=== PATIENT | male | born 1980 | race Caucasian/White ===

== ENCOUNTER 2022-01-18 17:05 | Emergency (ER) | payer OTHER ==
[2022-01-18 17:34] VITALS: BP 113/66; PULSE 111; TEMP 97.9; BMI 23.4
[2022-01-18] MEDS ORDERED: KETOROLAC TROMETHAMINE 60 MG/2 ML VIAL IM ONE (18:39)
[2022-01-18] MEDS ORDERED: SODIUM CHLORIDE 1,000 ML IV STA (18:40)
[2022-01-18] MEDS ORDERED: KETOROLAC TROMETHAMINE 30 MG/1 ML VIAL IVPUSH ONE (18:40)
== END 2022-01-18 18:45 | disposition left against medical advice (07) ==
LOC: JER 17:05
PROC: 3E0233Z Introduction of Anti-inflammatory into Muscle, Percutaneous Approach (ICD-10-PCS; principal; 2022-01-18)
PROC: 3E0333Z Introduction of Anti-inflammatory into Peripheral Vein, Percutaneous Approach (ICD-10-PCS; 2022-01-18)
PROC: 3E0337Z Introduction of Electrolytic and Water Balance Substance into Peripheral Vein, Percutaneous Approach (ICD-10-PCS; 2022-01-18)
DX: R30.0 Dysuria (principal); R31.0 Gross hematuria
CPT/HCPCS: 96361; 96374; 96375; 99284-25

== ENCOUNTER 2022-05-10 15:19 | Emergency (ER) | payer OTHER ==
[2022-05-10 15:30] VITALS: BP 107/55; PULSE 64; TEMP 98.1; BMI 23.7
[2022-05-10] MEDS ORDERED: AZITHROMYCIN 500 MG TABLET PO ONE (16:51)
[2022-05-10] MEDS ORDERED: AZITHROMYCIN 500 MG TABLET ONE (17:16)
[2022-05-10] MEDS ORDERED: LIDOCAINE HCL 1%, 10 MG/ML (20ML VIAL) ONE (17:17)
[2022-05-10] MEDS ORDERED: cefTRIAXone SODIUM 1 GM VIAL ONE (17:17)
[2022-05-10] MEDS ORDERED: IBUPROFEN 600 MG TABLET (FP) PO ONE ×2 (17:32→17:34)
[2022-05-10 17:58] LABS: EPI CELLS 26 /uL (0-25.1); HYALINE CASTS 6 /uL (0-3.1); PH,URINE 5.5 (5.0-8.0); URINE APPEARANCE CLEAR; URINE BACTERIA 305 /uL (0-1359); URINE BILIRUBIN NEGATIVE (NEGATIVE); URINE COLOR YELLOW; URINE GLUCOSE (UA) NEGATIVE (NEGATIVE); URINE KETONE TRACE (NEGATIVE); URINE LEUK ESTERASE 1+ (NEGATIVE); URINE NITRITE NEGATIVE (NEGATIVE); URINE PROTEIN NEGATIVE (NEGATIVE); URINE WBC 58 /uL (0-25.8)
[2022-05-10 18:18] LABS: URINE RBC 21 /uL (0-23.9)
[2022-05-10 19:40] LABS: HIV INTERPRETATION NEGATIVE (NEGATIVE)
== END 2022-05-10 17:54 | disposition home or self-care (01) ==
LOC: JER 15:19
PROC: 3E023GC Introduction of Other Therapeutic Substance into Muscle, Percutaneous Approach (ICD-10-PCS; principal; 2022-05-10)
DX: N34.2 Other urethritis (principal)
CPT/HCPCS: 36415; 81003; 86780; 87086; 87389; 87491; 87591; 99284-25